=== PATIENT | male | born 1980 ===

== ENCOUNTER 2024-01-25 16:01 | Emergency (ER) | payer OTHER, SELFPAY ==
--- NOTE | ~2024-01-25 | CT_ITS ---
EXAMINATION: CT HEAD WITHOUT CONTRAST CT CERVICAL SPINE WITHOUT CONTRAST CLINICAL INFORMATION: Fall. Head strike. Neck pain. COMPARISON: None available. TECHNIQUE: Contiguous axial imaging was performed from the skull base to vertex without intravenous administration of contrast. Contiguous axial imaging was performed from the upper chest through the skull base without intravenous administration of contrast. Coronal and sagittal reformats were obtained at the acquisition workstation. This CT examination was performed using dose optimization techniques as appropriate, variously including the following: *Automated exposure control. *Adjustment of mA and/or kV according to patient size (this includes techniques or standardized protocols for targeted exams where dose is matched to indication/reason for exam; i.e. extremities or head). *Use of iterative reconstruction technique. DLP: 1158 mGy-cm FINDINGS: Head: There is no evidence of acute intracranial hemorrhage or edematous territorial infarction. Moore-white matter differentiation is preserved. There is no abnormal attenuation within the brain parenchyma. The ventricles are normal in morphology and size. No evidence for obstructive hydrocephalus. No abnormal mass effect or midline shift. No extra-axial fluid collections. No acute soft tissue or osseous abnormalities. Mild mucosal thickening of the paranasal sinuses. The mastoid air cells and middle ear cavities are clear. Cervical Spine: The atlantooccipital and atlantoaxial articulations remain well aligned. Mild reversal the normal cervical lordosis centered on C4-C5. Mild degenerative anterolisthesis of C2 on C3. Otherwise, there is anatomic alignment of the vertebral bodies and posterior elements. No evidence of acute fracture or subluxation. The vertebral body heights are maintained. Advanced degenerative disc disease from C5-C7. Moderate degenerative disc disease from C2-C5. Facet and uncovertebral joint arthropathy leads to osseous encroachment on the neural foramina from C5-C7. There is no prevertebral soft tissue swelling. The thyroid gland and remaining cervical soft tissues are within normal limits. The lung apices demonstrate no abnormalities. CT/CT cervical spine wo IV con IMPRESSION: 1. No evidence of acute intracranial hemorrhage or edematous territorial infarction. 2. No evidence of acute fracture or traumatic subluxation of the cervical spine. 3. Moderate multilevel degenerative spondyloarthropathy of the cervical spine. Electronically signed by: Osmani Ballard DO 01/25/2024 09:01 PM EDT
--- NOTE | ~2024-01-25 | XR_ITS ---
EXAMINATION: XR ELBOW, LEFT CLINICAL INFORMATION: Elbow pain after fall COMPARISON: None available. TECHNIQUE: AP, lateral, and oblique views of the left elbow. FINDINGS: There is a hemarthrosis present and a nondisplaced intra-articular fracture involving the radial head. No other fractures are seen. XR/XR elbow LT min 3V IMPRESSION: Nondisplaced intra-articular radial head fracture with hemarthrosis. Electronically signed by: Michael Dixon MD 01/25/2024 08:25 PM EDT
[2024-01-25 16:06] VITALS: PULSE 80; O2SAT 95
[2024-01-25 16:08] VITALS: BP 120/78; PULSE 56; RESP 18; TEMP 36.5; O2SAT 98; BMI 27.3
--- NOTE | 2024-01-25 17:33 | ED_ITS ---
HPI - Fall General Chief Complaint: Fall Stated Complaint: L eyebrow lac, 2cm, no thinners, no LOC Time Seen by Provider: 01/25/24 17:23 Source: patient and EMS Mode of arrival: EMS Limitations: no limitations History of Present Illness ED Provider: Althea MENDIETA HPI Narrative: This is a 43-year-old male who denies past medical history presenting status post trip and fall, patient was at work playing with resident he tripped on his own feet falling forward and hitting the left side of his head on concrete, he reports immediately after he had a headache and reported left elbow pain he thinks he tried to catch himself on outstretched arms. There was no loss of consciousness. He is not on blood thinners. No preceding symptoms to fall. Elbow pain is worse with movement better at rest. Patient reports mild headache feels like his typical localized to the left side. No nausea or vomiting after fall. He denies neck pain. Denies chest pain, shortness of breath, nausea, vomiting, vision changes, dizziness, weakness, numbness, tingling. Related Data Previous Rx's ?Medication ?Instructions ?Recorded acetaminophen 325 mg capsule 650 mg (2 x 325 mg) PO Q6H PRN 01/25/24 (Tylenol) pain #30 caps ketorolac 10 mg tablet 10 mg PO TID PRN pain 5 days #15 01/25/24 tabs Allergies Allergy/AdvReac Type Severity Reaction Status Date / Time No Known Allergies Allergy Verified 01/25/24 16:10 Review of Systems Review of Systems: Yes all other systems are reviewed and are negative PMFSH Past Medical History Attestation statement: The following information was validated with the patient. Source: old records reviewed and nursing notes reviewed Social History Social History Smoked in Last 30 Days: No Use of substances other than those prescribed or required for medical reasons: No Advance Directives: No Advance Directives Information Provided: No Physical Exam Vital Signs: Vital Signs: Last Vital Signs Temp 98.2 F 01/25/24 20:00 Pulse 56 01/25/24 20:00 Resp 18 01/25/24 20:00 BP 110/62 01/25/24 20:00 Pulse Ox 96 01/25/24 20:00 O2 Del Method Room Air 01/25/24 20:00 BMI result Body Mass Index 27.3 vss Appearance: Alert.? Oriented X3.? No acute distress.? Head: Normocephalic, no step-offs or deformities + 2 cm lac to lateral aspect of left eyebrow. EOMI painf ree Eyes: Pupils equal, round and reactive to light.? ENT: Pharynx normal.? Neck: Normal inspection.? Neck supple.? CVS: Normal heart rate and rhythm.? Pulses normal.? Respiratory: No respiratory distress.? Breath sounds normal.? Abdomen: Soft and nontender.? Skin: Skin warm and dry.? Normal skin color.? Normal skin turgor.? Extremities: No lower extremity edema.? No calf ttp. 5/5 strength to bilateral upper and lower extremities. 2+ radial pulses distal sensation intact bilaterally to upper extremities. Slight discomfort with range of motion of left elbow. Mild effusion overlying the left elbow. No abrasions or lacerations overlying. Normal ROM to b/l elbows, wrist. No wrist drop. Normal cap refill b/l UE Back: No midline tenderness, no C-spine tenderness, full range of motion, no CVA tenderness bilaterally Neuro: Oriented X 3.? No motor deficit.? No sensory deficit. CN 2-12 intact Course Reevaluation(s) Reevaluation #1: Dermabond applied to left lateral aspect of eyebrow. Patient tolerated well. Time: 18:16 Reevaluation #2: Patient's left elbow with nondisplaced intra-articular radial head fracture with hemarthrosis, new recommendation state posterior splint to not be applied and left on for more than 1-2 days. Will apply sling and have him follow up with the orthopedic team. Will also apply Kwesi wrap. Will educate him on basic range of motion exercises and when to return. Imaging of head and cervical spine still pending. Time: 20:47 Reevaluation #3: I did discuss this case with Orthopedics Dr. Vasquez who agrees with diagnosis and treatment plan. Time: 20:50 Additional Reevaluation(s): CT head, cervical spine with no acute findings. No signs of intracranial hemorrhage, or edematous territorial infarction. No acute traumatic fractures or subluxations of cervical spine. Degenerative changes in the cervical spine. Educated patient on diagnosis and treatment plan, answered all question, patient verbalizes understanding. At this time patient will be discharged home, advised to return with new or worsening symptoms. Educated on worrisome signs and symptoms and when to return. At this time I feel comfortable discharge home. Medications Administered Discontinued Medications Generic Name Dose Route Start Last Admin Trade Name Shelbie PRN Reason Stop Dose Admin Acetaminophen 975 mg 01/25/24 17:36 01/25/24 18:45 Acetaminophen 325 Mg Tablet PO 01/25/24 17:37 975 mg ONCE ONE Administration Ketorolac Tromethamine 30 mg 01/25/24 18:36 01/25/24 19:01 Ketorolac Tromethamine 30 Mg/Ml Vial IM 01/25/24 18:37 30 mg ONCE ONE Administration Medical Decision Making Medical Decision Making [facility] Narrative: 43-year-old male presents with complaints of headache, laceration to the left ey ebrow and left elbow pain status post fall at work. Physical exam significant for 2 cm laceration to the lateral aspect of left eyebrow.2+ radial pulses distal sensation intact bilaterally to upper e xtremities. Slight discomfort with range of motion of left elbow. Mild effusion overlying the left elbow. No abrasions or lacerations overlying. Neurological assessment nonfocal. GCS 15. NIH stroke scale 0. This is likely headache from concussion status post fall with head strike, no loss of consciousness. Unlikley ICH, stroke. No signs of syncope or seizure. Unlikely ACS, PE, dissection. Left elbow pain likely traumatic effusion of left elbow +/- fx . Unlikely, dislocation, neurovascular compromise or acute threat to limb. Plan imaging. Will give Tylenol for pain control. Will repair with Dermabond. Did discuss sutures versus Dermabond and cosmetic appearance. Patient is okay with Dermabond. He is up-to-date on tetanus shot no need for repeat. Differential Diagnosis Differential Diagnoses: The differential diagnosis associated with the presentation includes This is likely headache from concussion status post fall with head strike, no loss of consciousness. Unlikley ICH, stroke. No signs of syncope or seizure. Unlikely ACS, PE, dissection. Left elbow pain likely traumatic effusion of left elbow +/- fx . Unlikely, dislocation, neurovascular compromise or acute threat to limb. Admission/Observation Consideration of admission/observation: Escalation of care including admission/observation considered not indicated Lab Data [facility] Lab Attestation statement: I reviewed the patient's lab results. Independent Interpretation I performed an independent interpretation of an: Plain X-Ray and CT Scan Radiology Impression Discussion of test interpretation with radiology: I have reviewed the radiologist's reading. Chronic Conditions Denies Discharge Plan Discharge Clinical Impression: Concussion without loss of consciousness, Elbow pain, left, Fracture of radial head, closed Patient Disposition: Home, Self-Care Instructions: Concussion (ED), Post Concussion Syndrome (ED), Arm Pain (ED) Additional Instructions: Take your medications as prescribed. If you were prescribed antibiotics today, it is important that you take your medication to their entirety, do not skip any doses, do not finish them early. Follow-up with your primary care provider this week. Return to the emergency department with new or worsening symptoms. Such as fevers, chills, chest pain, shortness of breath, nausea, vomiting, dizziness, headache, vision changes, lethargy In case of emergency call 911 Follow up with orthopedics within a week Practice basic range of motion exercies to L elbow to prevent frozen elbow. Return with new or worsening symptoms such as numbness, tingling, wrist drop. Do not touch the glue, allow it to come off on its own. CT/CT cervical spine & head/brainwo IV con IMPRESSION: 1. No evidence of acute intracranial hemorrhage or edematous territorial infarction. 2. No evidence of acute fracture or traumatic subluxation of the cervical spine. 3. Moderate multilevel degenerative spondyloarthropathy of the cervical spine. XR/XR elbow LT min 3V IMPRESSION: Nondisplaced intra-articular radial head fracture with hemarthrosis. Prescriptions: New ketorolac 10 mg tablet 10 mg PO TID PRN (Reason: pain) 5 Days Qty: 15 0RF Rx Instructions: Tolerated IM or IV in department acetaminophen [Tylenol] 325 mg capsule 650 mg PO Q6H PRN (Reason: pain) Qty: 30 0RF Referrals: [facility] [Provider Group] - 2 days ED Physician,Generic [Physician] - 2 days Stand Alone Forms: Work/School Release Print Language: Cymraes
[2024-01-25] MEDS: Acetaminophen 325 MG TABLET 975 MG PO (18:45)
[2024-01-25] MEDS: Ketorolac Tromethamine 30 MG/ML VIAL IM (19:01)
--- NOTE | 2024-01-25 19:02 | PC.NURSE ---
this rn assumed care of pt, pt reporting 10/10 left back of arm pain, pt medicated per may. pt a&ox4, respirations even and unlabored.
[2024-01-25 20:00] VITALS: BP 110/62; PULSE 56; RESP 18; TEMP 36.8; O2SAT 96
[2024-01-25 21:17] VITALS: BP 110/62; PULSE 56; RESP 18; TEMP 36.8; O2SAT 96
== END 2024-01-25 21:18 | disposition home or self-care (01) ==
PROVIDERS: Emergency Provider Internal Medicine
DX: S06.0X0A Concussion without loss of consciousness, initial encounter (principal); S52.125A Nondisplaced fracture of head of left radius, initial encounter for closed fracture; W01.0XXA Fall on same level from slipping, tripping and stumbling without subsequent striking against object, initial encounter; Y93.89 Activity, other specified; Y92.9 Unspecified place or not applicable; Y99.9 Unspecified external cause status
CPT/HCPCS: 70450; 72125; 73080; 96372; 99284; 99285; J1885

== ENCOUNTER → 2024-01-27 09:11 | Outpatient (BNVA) | payer OTHER, SELFPAY | PROVIDERS: Visit Provider Physician Assistant Medical | DX: Z13.89 Encounter for screening for other disorder (principal) | CPT/HCPCS: 99202 ==

== ENCOUNTER → 2024-02-01 10:40 | Outpatient (BNVA) | payer OTHER, SELFPAY | PROVIDERS: Visit Provider Physician Assistant Medical | DX: Z13.89 Encounter for screening for other disorder (principal) | CPT/HCPCS: 99213 ==

== ENCOUNTER 2024-02-03 10:05 | Outpatient (REF) | payer OTHER, SELFPAY | END 2024-02-03 10:06 | disposition home or self-care (01) | LOC: HO.HOSX 10:05 | PROVIDERS: Visit Provider Physician Assistant | DX: M25.522 Pain in left elbow (principal); S52.122A Displaced fracture of head of left radius, initial encounter for closed fracture | CPT/HCPCS: 73080; 99202 ==

== ENCOUNTER 2024-02-03 14:25 | Outpatient (AMB) | payer OTHER, SELFPAY ==
--- NOTE | 2024-02-03 14:35 | A.OFFVIS_ITS ---
Intake Visit Reasons: FC- WC Left radial head fx DOI 01/25/24 Intake Note: Manoj a 43 year old male who presents today for a evaluation of left radial head fx, DOI 01/25/24. Patient reports that he was at a clients house when he tripped and fell on his left side. He presented to [facility] where xrays were taken and placed in a sling. He has cold shooting pain with arm movements. He does at home exercises which has helped improve his ROM. Denies numbness or tingling. Allergies No Known Allergies Allergy (Verified 02/03/24 15:00) HPI HPI FC- WC Left radial head fx DOI 01/25/24: Details: 43-year-old male who presents to the office today for an evaluation of left elbow injury, 01/25/24. 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 He currently states he has discomfort, and cold shooting pain in his elbow that comes with arm movement. He denies any numbness or tingling. He has been working on home exercises with benefits. [facility] Social History (Updated 02/03/24 @ 15:01 by Janette Martin Gloria) Patient Tobacco Use Status: Current everyday Tobacco user Current occupational status: employed Review of Systems Const All systems reviewed & are unremarkable except as noted in HPI and below Physical Exam Const General: cooperative, healthy appearing, comfortable, no acute distress, well developed and alert Orientation/consciousness: patient oriented x3 HEENT Head: Yes normal to inspection, Yes normocephalic and Yes atraumatic Eyes General: appearance normal, both eyes and all related structures Resp Effort & Inspection: normal respiratory effort and able to speak in complete sentences Cardio Rate: regular rate Peripheral pulses: Peripheral pulses 2+ throughout GI Palpation (GI): Soft to palpation Skin Lesions: no lesions Rashes: no rashes Neuro General: patient oriented x3 Extrem Other: Left elbow: Skin intact, no open wounds. Mild tenderness over the radial head. No pain over the olecranon. No difficulty with flexion or extension, mild discomfort with supination and pronation. No pain along the distal radius or proximal humerus. Sensation and peripheral pulses present. Office Procedures AMB Fracture Care Fracture Billing Code: Fracture Billing Code Results Reviewed Results Reviewed: Xrays were obtained in the office today and personally reviewed by me of the left elbow show nondisplaced radial head fracture Assessment & Plan Assessment & Plan (1) Left radial head fracture: Code(s): S52.122A - Displaced fracture of head of left radius, initial encounter for closed fracture Category: Medical Plan He will work on gentle flexion and extension as long as he is pain free. He will avoid any type of forceful supination or pronation of the elbow. He will avoid any type of lifting, pushing, pulling, or carrying greater than a cellphone. He will remain out of work for 4 weeks at which point he will see me back with new x-rays, sooner if needed. Orders: Orders XR elbow LT min 3V Today M25.522 - Pain in left elbow Patient Instructions: Scribed for Reginald Edwards PA-C, by Akash Lizama medical claims representative, on 02/03/2024 at 2:30 PM EST.? I, Reginald Edwards PA-C, have personally reviewed and agree with the information entered by the scribe. Coding Level of Care Code New Pt Level 3 (77220) Complex EM visit Add On G2211 Diagnoses Left radial head fracture S52.122A CPT Codes Fracture Care - Fracture Billing Code: Fracture Billing Code ([id number])
== END 2024-02-03 15:22 | disposition home or self-care (01) ==
LOC: HO.HOS 14:25
PROVIDERS: Visit Provider Physician Assistant
DX: S52.122A Displaced fracture of head of left radius, initial encounter for closed fracture (principal)
CPT/HCPCS: 99203; G2211

== ENCOUNTER 2024-03-02 07:49 | Outpatient (RCR) | payer OTHER, SELFPAY | END 2024-05-06 07:11 | disposition home or self-care (01) | LOC: HO.PT 07:49 | PROVIDERS: Visit Provider Physician Assistant | DX: S52.122A Displaced fracture of head of left radius, initial encounter for closed fracture (principal) ==

== ENCOUNTER 2024-03-02 09:19 | Outpatient (REF) | payer OTHER, SELFPAY | END 2024-03-02 09:20 | disposition home or self-care (01) | LOC: HO.HOSX 09:19 | PROVIDERS: Visit Provider Physician Assistant | DX: M25.522 Pain in left elbow (principal); S52.125D Nondisplaced fracture of head of left radius, subsequent encounter for closed fracture with routine healing | CPT/HCPCS: 73080; 99212 ==

== ENCOUNTER 2024-03-02 13:28 | Outpatient (AMB) | payer OTHER, SELFPAY ==
--- NOTE | 2024-03-02 13:33 | A.OFFVIS_ITS ---
Vital Signs 03/02/24 13:38 Height 5 ft 9 in Weight 185 lb BMI 27.3 Intake Visit Reasons: OV- WC Left radial head fx DOI 01/25/24 Intake Note: Manoj a 43 year old male who presents today for a follow up of left radial head fx s/p work injury, DOI 01/25/24. X-rays updated. Patient reports improvement in his pain. States being scared to use his arm which is causing muscle soreness in his lower and upper part of arm. He starts his first PT session today. Allergies No Known Allergies Allergy (Verified 03/02/24 13:39) Medication List - Last Reconciled 03/02/24 by Reginald Edwards PA-C acetaminophen (Tylenol) 650 mg (2 x 325 mg) PO Q6H PRN HPI HPI OV- WC Left radial head fx DOI 01/25/24: Details: 43-year-old male who returns to the office today for a follow-up of left elbow fracture, 01/25/24. He states he has improvement in his pain however he has been scared to use his arm which is causing muscle soreness in his lower and upper part of arm. His pain is aggravated with certain motions. He has his first physical therapy session today. He has no other concerns today. [facility] Social History Patient Tobacco Use Status: Current everyday Tobacco user Current occupational status: employed Review of Systems Const All systems reviewed & are unremarkable except as noted in HPI and below Physical Exam Vital Signs: BMI result Body Mass Index 27.3 Const General: cooperative, healthy appearing, comfortable, no acute distress, well developed and alert Orientation/consciousness: patient oriented x3 HEENT Head: Yes normal to inspection, Yes normocephalic and Yes atraumatic Eyes General: appearance normal, both eyes and all related structures Resp Effort & Inspection: normal respiratory effort and able to speak in complete sentences Cardio Rate: regular rate Peripheral pulses: Peripheral pulses 2+ throughout GI Palpation (GI): Soft to palpation Skin Lesions: no lesions Rashes: no rashes Neuro General: patient oriented x3 Extrem Other: Left elbow: Skin intact, no open wounds. No tenderness over the radial head. No pain over the olecranon. No difficulty with flexion or extension, no pain with supination and pronation. He has mild discomfort in the forearm with wrist extension. No pain along the distal radius or proximal humerus. Sensation and peripheral pulses present. Results Reviewed Results Reviewed: Xrays were obtained in the office today and personally reviewed by me of the left elbow show stable fracture pattern. Assessment & Plan Assessment & Plan (1) Left radial head fracture: Code(s): S52.122A - Displaced fracture of head of left radius, initial encounter for c losed fracture Category: Medical Qualifiers: Encounter type: subsequent encounter Fracture type: closed Fracture alignment: nondisplaced Fracture healing: with routine healing Qualified Code(s): S52.125D - Nondisplaced fracture of head of left radius, subsequent encounter for closed fracture with routine healing Plan He is going to continue working with occupational therapy for ROM and gentle strengthening. He can increase activities as tolerated however he should avoid any type of heavy lifting greater than 20-30 pounds for 6 weeks until he is cleared by physical therapy. We also discussed his return to work status this time and with his lifting restrictions and discomfort with certain motions I would like him to hold off on driving and any type of physical contact. Therefore, he will remain out of work till his next follow-up in 6 weeks with x- rays, sooner if needed. Orders: Orders XR elbow LT min 3V Today M25.522 - Pain in left elbow Patient Instructions: Scribed for Reginald Edwards PA-C, by Akash Lizama medical record coder, on 03/02/2024 at 1:30 PM EST.? I, Reginald Edwards PA-C, have personally reviewed and agree with the information entered by the scribe. Coding Level of Care Code Global (19809) Diagnoses Closed nondisplaced fracture of head of left radius with routine healing, subsequent encounter S52.125D Encounter type: subsequent encounter Fracture type: closed Fracture alignment: nondisplaced Fracture healing: with routine healing
[2024-03-02 13:38] VITALS: BMI 27.3
== END 2024-03-02 13:50 | disposition home or self-care (01) ==
PROVIDERS: Visit Provider Physician Assistant
DX: S52.125D Nondisplaced fracture of head of left radius, subsequent encounter for closed fracture with routine healing (principal)
CPT/HCPCS: 99213

== ENCOUNTER 2024-03-28 07:51 | Outpatient (RCR) | payer OTHER, SELFPAY | END 2024-04-06 08:04 | disposition home or self-care (01) | LOC: HO.OT 07:51 | PROVIDERS: Visit Provider Physician Assistant | DX: S52.125D Nondisplaced fracture of head of left radius, subsequent encounter for closed fracture with routine healing (principal) | CPT/HCPCS: 97110; 97140; 97165; 97530 ==

== ENCOUNTER 2024-04-11 08:42 | Outpatient (AMB) | payer OTHER, SELFPAY ==
[2024-04-11 08:50] VITALS: BMI 27.3
--- NOTE | 2024-04-11 08:50 | MHC.OFFVIS ---
Vital Signs 04/11/24 08:50 Height 5 ft 9 in Weight 185 lb BMI 27.3 Intake Visit Reasons: 6wk f.u Lt radial head fx w xrays Intake Note: Manoj a 43 year old male who presents today for a follow up of left radial head fx s/p work injury, DOI 01/25/24. X-rays updated. Patient reports he is doing better however he is still having soreness and clicking. States he has completed O.T and continues to do exercises at home. Allergies No Known Allergies Allergy (Verified 04/11/24 08:53) Medication List - Last Reconciled 04/11/24 by Reginald Edwards PA-C acetaminophen (Tylenol) 650 mg (2 x 325 mg) PO Q6H PRN HPI HPI 6wk f.u Lt radial head fx w xrays: Details: 43-year-old male presents to the office today follow-up left radial head fracture. Patient states he completed occupational therapy. He is doing well with most activities he states he does have some stiffness but overall doing well. [facility] Social History Patient Tobacco Use Status: Current everyday Tobacco user Current occupational status: employed Review of Systems Const All systems reviewed & are unremarkable except as noted in HPI and below Physical Exam Vital Signs: BMI result Body Mass Index 27.3 Const General: cooperative, healthy appearing, comfortable, no acute distress, well developed and alert Orientation/consciousness: patient oriented x3 HEENT Head: Yes normal to inspection, Yes normocephalic and Yes atraumatic Eyes General: appearance normal, both eyes and all related structures Resp Effort & Inspection: normal respiratory effort and able to speak in complete sentences Cardio Rate: regular rate Peripheral pulses: Peripheral pulses 2+ throughout GI Palpation (GI): Soft to palpation Skin Lesions: no lesions Rashes: no rashes Neuro General: patient oriented x3 Extrem Other: Left elbow: Skin intact, no open wounds. No tenderness over the radial head. No pain over the olecranon. No difficulty with flexion or extension, no pain with supination and pronation. He has mild discomfort in the forearm with wrist extension. No pain along the distal radius or proximal humerus. Sensation and peripheral pulses present. Results Reviewed Results Reviewed: Xrays were obtained in the office today and personally reviewed by me of the left elbow show stable fracture pattern. Assessment & Plan Assessment & Plan (1) Left radial head fracture: Code(s): S52.122A - Displaced fracture of head of left radius, initial encounter for closed fracture Category: Medical Qualifiers: Encounter type: subsequent encounter Fracture type: closed Fracture alignment: nondisplaced Fracture healing: with routine healing Qualified Code(s): S52.125D - Nondisplaced fracture of head of left radius, subsequent encounter for closed fracture with routine healing Plan: Patient will continue to increase activities as tolerated. I did encourage him to work on his home exercise program for stretching and strengthening exercises. If symptoms arise he will contact our office for a follow-up otherwise follow-up as needed. He will return to work with no limitations. Orders: Orders XR elbow LT min 3V Today M25.522 - Pain in left elbow Coding Level of Care Code Est Pt Level 3 (14978) Complex EM visit Add On G2211 Diagnoses Closed nondisplaced fracture of head of left radius with routine healing, subsequent encounter S52.125D Encounter type: subsequent encounter Fracture type: closed Fracture alignment: nondisplaced Fracture healing: with routine healing
== END 2024-04-11 09:15 | disposition home or self-care (01) ==
PROVIDERS: Visit Provider Physician Assistant
DX: S52.125D Nondisplaced fracture of head of left radius, subsequent encounter for closed fracture with routine healing (principal)
CPT/HCPCS: 99213; G2211

== ENCOUNTER 2024-04-11 09:14 | Outpatient (REF) | payer OTHER, SELFPAY ==
--- NOTE | ~2024-04-11 | XR_ITS ---
CLINICAL HISTORY: M25.522 - Pain in left elbow 3 view left elbow Comparison: DX/FL/SR - XR ELBOW LT MIN 3V - 03/02/24 13:29 EST Findings: Nondisplaced radial head fracture again noted with diminished lucency of the fracture relative to the prior exam. No significant loss of joint space, osteophytes, or erosions. No joint effusion. No radiopaque foreign body. IMPRESSION: Nondisplaced radial head fracture again noted with diminished lucency of the fracture relative to the prior exam. This document has been electronically signed by: Ariel New MD on 04/11/2024 10:41:12
== END 2024-04-11 09:15 | disposition home or self-care (01) ==
LOC: HO.HOSX 09:14
PROVIDERS: Visit Provider Physician Assistant
DX: M25.522 Pain in left elbow (principal); S52.125D Nondisplaced fracture of head of left radius, subsequent encounter for closed fracture with routine healing
CPT/HCPCS: 73080; 99212